=== PATIENT | male | born 1985 | race Caucasian/White ===

== ENCOUNTER → 2021-08-07 | Outpatient (CLI) | payer OTHER ==
--- NOTE | 2021-08-07 10:54 | RAD ---
Right knee 3 views. HISTORY: Pain right knee, trampoline injury 3 views were taken of the right knee. There is not evidence of an acute fracture. There is a prominen t joint effusion. MRI could be of benefit to evaluate for ligamentous injury or internal derangement. IMPRESSION: 1. Prominent joint effusion right knee. 2. No acute fracture. Electronically signed by: Nando Stubbs MD (08/07/2021 10:52 AM) [id number]
== END ==
LOC: PMG 10:28
PROVIDERS: ATTEND Physician Assistant
DX: M25.461 Effusion, right knee (principal)
CPT/HCPCS: 73562